=== PATIENT | female | born 1950 | race Two or more races ===

== ENCOUNTER → 2020-01-18 10:37 | Outpatient (BNVA) | payer MEDICARE, BC, SELFPAY | PROVIDERS: PCP Physician Assistant Medical; Visit Provider Hospitalist | DX: G47.33 Obstructive sleep apnea (adult) (pediatric) (principal); Z99.89 Dependence on other enabling machines and devices | CPT/HCPCS: 99212 ==

== ENCOUNTER → 2020-08-01 11:08 | Outpatient (BNVA) | payer MEDICARE, BC, SELFPAY | PROVIDERS: PCP Physician Assistant Medical; Visit Provider Hospitalist | DX: G47.33 Obstructive sleep apnea (adult) (pediatric) (principal); F51.01 Primary insomnia; Z99.89 Dependence on other enabling machines and devices | CPT/HCPCS: 99212 ==

== ENCOUNTER → 2021-04-03 11:20 | Outpatient (BNVA) | payer MEDICARE, BC, SELFPAY | PROVIDERS: PCP Physician Assistant Medical; Visit Provider Hospitalist | DX: Z13.89 Encounter for screening for other disorder (principal) | CPT/HCPCS: Q3014 ==

== ENCOUNTER → 2021-10-08 13:45 | Outpatient (BNVA) | payer MEDICARE, BC, SELFPAY | PROVIDERS: PCP Physician Assistant Medical; Visit Provider Hospitalist | DX: F51.01 Primary insomnia (principal); G47.33 Obstructive sleep apnea (adult) (pediatric); Z99.89 Dependence on other enabling machines and devices | CPT/HCPCS: Q3014 ==

== ENCOUNTER 2022-10-13 09:40 | Outpatient (AMB) | payer MEDICARE, BC, SELFPAY ==
--- NOTE | 2022-10-13 09:47 | A.OFFVIS_ITS ---
Intake Vital Signs 10/13/22 09:48 Height 5 ft 4 in Weight 170 lb BMI 29.2 BP 126/78 Blood Pressure Location Rt brachial Position Sitting Pulse 73 Pulse Source Pulse Oximeter Pulse Oximetry (%) 94 Oxygen Delivery Method Room Air Intake Visit Reasons: Obstructive sleep apnea Hand Violin Maker Required: No Allergies Sulfa (Sulfonamide Antibiotics) Allergy (Intermediate, Verified 10/13/22 09:53) Rash HPI HPI Comments History of Present Illness Details The patient is a 71-year-old woman with a known history of obstructive sleep apnea on CPAP therapy. She also has underlying high blood pressure and hypercholesterolemia. The patient has been on CPAP for many years. The CPAP therapy has been effective in beneficial. Recently she had has had significant weight loss. I believe this has helped her with her sleep apnea. However, she continues to have increased risk factors. She sleeps well with the CPAP she does complaint of a dry nose and she is going to looking to getting some water- based lubricant. I did request a download from her CPAP. It appears that her AHI is indeed around 6 suggesting still some mild sleep apnea. Her average pressure is between 11 and 12 cm of water. Her machine only goes up to 12 cm. Therefore we need to increase her pressures further. She denies any cough or shortness of breath. She did have a knee replacement and has been healing from that surgery in her left knee. 10/08/2021 the patient has a telephone visit today. The patient is still struggling with her CPAP. Apparently the CPAP is turning on and off by itself. Sometimes she gets home and she notices that the machine is very hot. Therefore she started disconnected from the plug because she is concerned is going to start a fire. I explained to her that this is not normal. The machine is no longer working effectively and now is dangerous and needs to be replaced. She is currently working closely with the [employer], [employer]. I will make sure to submit a prescription for new CPAP, AirSense 11 to replace her malfunctioning machine that is more than 5 years old. As far as [place]. She is not very happy with the F 30 because it leaks a around it. She rather have an F20 fullface mask that may seal her a little bit better. in regards to sleep aid she continues uses trazodone with good effect. She also continues with nasal therapy for allergic rhinitis. The patient understands that there is a back log of CPAP machines in therefore will take longer for her to get a replacement machine and to be patient. In the meantime she should continue this connective CPAP when leaving her home specially if is going to be warming up. 10/13/2022 the patient is here for pulmonary follow-up visit today. Overall the patient has been doing fairly well. She is staying active and she is now going to the [employer] [place]. She is volunteering her time there. She still having difficulties with her sleep. She states that her machine is not working correctly. We had submitted a prescription for a new CPAP last year and for some reason she did not get it. She is concerned because she does not feel like his given of the right pressures and sometime she gets some a needs from using machine since she does not feel like it is working correctly. Still when she does not use it she gets very drowsy and Kateryna to take a nap. Therefore she understands that she needs to continue using it. The CPAP therapy continues to be affecting beneficial and she does try to use it 4 hours in the nighttime. However with the uncertainty that if is working she is concerned that it is needs to be replaced. Therefore I will submit a repair replacement machine to her [employer] company at this time. From a respiratory status patient is doing well she is not using any inhalers. Still, with sleep she does use trazodone with good effect. [facility] Medical History (Updated 08/01/20 @ 23:10 by Neville Arita MD) Insomnia LUIS ALFREDO on CPAP Family History (Updated 01/18/20 @ 23:26 by Neville Arita MD) Father No problems noted. Social History (Updated 10/13/22 @ 09:55 by GANESH Salinas) Patient Tobacco Use Status: Never used Tobacco Review of Systems Const Reports difficulty sleeping and Denies night sweats ENT Denies change in voice, Reports dry mouth, Denies lip swelling, Denies mouth pain, Reports nasal congestion, Reports nasal discharge and Denies tongue swelling Card Denies chest pain Resp Reports cough GI Denies abdominal pain Musc Reports as per HPI and Reports arthralgias Neuro Denies Neuro-related abnormal movements Psych Denies no additional complaints Lee/Lymph Denies easy bleeding and Denies lymphadenopathy Aller/Immun Denies lip swelling and Denies tongue swelling Physical Exam Vital Signs: Last Vital Signs Pulse 73 10/13/22 09:48 BP 126/78 10/13/22 09:48 Pulse Ox 94 10/13/22 09:48 Oxygen Delivery Method Room Air 10/13/22 09:48 BMI result Body Mass Index 29.2 Const General: alert HEENT General nose exam: Abnormal external nose present and Nasal discharge present Eyes Pupils: Equal, round and reactive pupils present Neck Neck: Yes normal visual inspection, Yes full ROM and Yes no lymphadenopathy Chest Chest palpation & inspection: normal inspection of the chest Resp Auscultation: diminished lung sounds Cardio Rate: regular rate Rhythm: regular rhythm Heart sounds: S1 normal heart sound present and S2 normal heart sound present GI Palpation (GI): Soft to palpation and nontender Auscultation: normal bowel sounds General: Yes no CVA tenderness Back/Spine/Pelvis Back: no CVA tenderness Skin General skin exam: rashes and/or lesions noted Neuro Cranial nerves: Yes Equal, round and reactive pupils present Assessment & Plan Assessment & Plan (1) Insomnia: Code(s): G47.00 - Insomnia, unspecified Qualifiers: Insomnia type: primary Qualified Code(s): F51.01 - Primary insomnia (2) LUIS ALFREDO on CPAP: Code(s): G47.33 - Obstructive sleep apnea (adult) (pediatric); Z99.89 - Dependence on other enabling machines and devices Plan Continue Trazodone for sleep Return to F20 mask, medium, will request supplies from her [employer]. Needs a replacement APAP due to malfunctioning cpap beyond repair. Requesting Airsense 11 F/U 6 months Coding Level of Care Code Est Pt Level 4 (85562) Diagnoses Insomnia F51.01 Insomnia type: primary LUIS ALFREDO on CPAP G47.33; Z99.89 Time Spent (min) 18
[2022-10-13 09:48] VITALS: BP 126/78; PULSE 73; O2SAT 94; BMI 29.2
== END 2022-10-13 10:13 | disposition home or self-care (01) ==
PROVIDERS: PCP Physician Assistant Medical; Visit Provider Hospitalist
DX: F51.01 Primary insomnia (principal); G47.33 Obstructive sleep apnea (adult) (pediatric); Z99.89 Dependence on other enabling machines and devices
CPT/HCPCS: 99214

== ENCOUNTER → 2022-10-13 09:40 | Outpatient (BNVA) | payer MEDICARE, BC, SELFPAY | PROVIDERS: PCP Physician Assistant Medical; Visit Provider Hospitalist | DX: G47.33 Obstructive sleep apnea (adult) (pediatric) (principal); F51.01 Primary insomnia; I10 Essential (primary) hypertension; E78.00 Pure hypercholesterolemia, unspecified; Z99.89 Dependence on other enabling machines and devices | CPT/HCPCS: 99212 ==

== ENCOUNTER 2023-04-13 09:35 | Outpatient (AMB) | payer MEDICARE, BC, SELFPAY ==
--- NOTE | 2023-04-13 09:39 | MHC.OFFVIS ---
Intake Vital Signs 04/13/23 09:40 Height 5 ft 4 in Weight 169 lb 15.622 oz BMI 29.2 BP 124/70 Blood Pressure Location Lt brachial Position Sitting Pulse 78 Pulse Source Pulse Oximeter Pulse Oximetry (%) 98 Oxygen Delivery Method Room Air Intake Visit Reasons: Obstructive sleep apnea Educational Technologist Required: No Allergies Sulfa (Sulfonamide Antibiotics) Allergy (Intermediate, Verified 04/13/23 09:43) Rash HPI HPI Comments History of Present Illness Details The patient is a 72-year-old woman with a known history of obstructive sleep apnea on CPAP therapy. She also has underlying high blood pressure and hypercholesterolemia. The patient has been on CPAP for many years. The CPAP therapy has been effective in beneficial. Recently she had has had significant weight loss. I believe this has helped her with her sleep apnea. However, she continues to have increased risk factors. She sleeps well with the CPAP she does complaint of a dry nose and she is going to looking to getting some water-based lubricant. I did request a download from her CPAP. It appears that her AHI is indeed around 6 suggesting still some mild sleep apnea. Her average pressure is between 11 and 12 cm of water. Her machine only goes up to 12 cm. Therefore we need to increase her pressures further. She denies any cough or shortness of breath. She did have a knee replacement and has been healing from that surgery in her left knee. 10/08/2021 the patient has a telephone visit today. The patient is still struggling with her CPAP. Apparently the CPAP is turning on and off by itself. Sometimes she gets home and she notices that the machine is very hot. Therefore she started disconnected from the plug because she is concerned is going to start a fire. I explained to her that this is not normal. The machine is no longer working effectively and now is dangerous and needs to be replaced. She is currently working closely with the [employer], [employer]. I will make sure to submit a prescription for new CPAP, AirSense 11 to replace her malfunctioning machine that is more than 5 years old. As far as [place]. She is not very happy with the F 30 because it leaks a around it. She rather have an F20 fullface mask that may seal her a little bit better. in regards to sleep aid she continues uses trazodone with good effect. She also continues with nasal therapy for allergic rhinitis. The patient understands that there is a back log of CPAP machines in therefore will take longer for her to get a replacement machine and to be patient. In the meantime she should continue this connective CPAP when leaving her home specially if is going to be warming up. 10/13/2022 the patient is here for pulmonary follow-up visit today. Overall the patient has been doing fairly well. She is staying active and she is now going to the [facility]. She is volunteering her time there. She still having difficulties with her sleep. She states that her machine is not working correctly. We had submitted a prescription for a new CPAP last year and for some reason she did not get it. She is concerned because she does not feel like his given of the right pressures and sometime she gets some a needs from using machine since she does not feel like it is working correctly. Still when she does not use it she gets very drowsy and Kateryna to take a nap. Therefore she understands that she needs to continue using it. The CPAP therapy continues to be affecting beneficial and she does try to use it 4 hours in the nighttime. However with the uncertainty that if is working she is concerned that it is needs to be replaced. Therefore I will submit a repair replacement machine to her [employer] company at this time. From a respiratory status patient is doing well she is not using any inhalers. Still, with sleep she does use trazodone with good effect. 04/13/2023 the patient is here for a pulmonary follow-up visit. Overall the patient has been doing well. She has been using the CPAP therapy and has been affecting beneficial. She does use it for more than 4 hours a night. Currently she is noticed that her AHI has been elevated. We did download her machine indeed her AHI is up to 9.5. It looks that she is also getting a very dry mouth. Likely from a very high temperature on her settings. In addition to that she is getting condensation in the tube due to the high temperature in the high humidity levels. Her average pressure is close to 9 cm and she typically varies between 9 and 15 cm. I did increase her pressures with a minimum pressure of 8 and a maximum pressure 18. We also switched her EPR to 3 to try to minimize the discomfort from the higher pressure. Will also adjusted her water chamber to decrease the temperature from 80 degrees to 64 degrees and brought down humidity from 5->3. I am hopeful that she can tolerated better. She does use a fullface mask. We also helped her with a portable so she can send us a message and try to adjusted accordingly. Meantime she is still using the trazodone for sleep. This has been affecting beneficial and she will continue for now. The patient returned in 6 months. However, if her AHI continues be elevated she needs to call the office.Also to note, she has been bleeding from her vericose veins. [facility] Medical History (Updated 04/13/23 @ 10:03 by Neville Arita MD) Insomnia LUIS ALFREDO on CPAP Family History (Updated 01/18/20 @ 23:26 by Neville Arita MD) Father No problems noted. Social History (Updated 10/13/22 @ 09:55 by Ambika Perla Ralf) Patient Tobacco Use Status: Never used Tobacco Review of Systems Const Reports difficulty sleeping and Denies night sweats ENT Denies change in voice, Reports dry mouth, Denies lip swelling, Denies mouth pain, Reports nasal congestion, Reports nasal discharge and Denies tongue swelling Card Denies chest pain and Reports leg edema Resp Reports cough GI Denies abdominal pain Musc Reports as per HPI and Reports arthralgias Neuro Denies Neuro-related abnormal movements Psych Denies no additional complaints Lee/Lymph Denies easy bleeding and Denies lymphadenopathy Aller/Immun Denies lip swelling and Denies tongue swelling Physical Exam Vital Signs: Last Vital Signs Pulse 78 04/13/23 09:40 BP 124/70 04/13/23 09:40 Pulse Ox 98 04/13/23 09:40 Oxygen Delivery Method Room Air 04/13/23 09:40 BMI result Body Mass Index 29.2 Const General: alert HEENT General nose exam: Abnormal external nose present and Nasal discharge present Eyes Pupils: Equal, round and reactive pupils present Neck Neck: Yes normal visual inspection, Yes full ROM and Yes no lymphadenopathy Chest Chest palpation & inspection: normal inspection of the chest Resp Auscultation: diminished lung sounds Cardio Rate: regular rate Rhythm: regular rhythm Heart sounds: S1 normal heart sound present and S2 normal heart sound present GI Palpation (GI): Soft to palpation and nontender Auscultation: normal bowel sounds General: Yes no CVA tenderness Back/Spine/Pelvis Back: no CVA tenderness Skin General skin exam: rashes and/or lesions noted Neuro Cranial nerves: Yes Equal, round and reactive pupils present Assessment & Plan Assessment & Plan (1) Insomnia: Code(s): G47.00 - Insomnia, unspecified Qualifiers: Insomnia type: primary Qualified Code(s): F51.01 - Primary insomnia (2) LUIS ALFREDO on CPAP: Code(s): G47.33 - Obstructive sleep apnea (adult) (pediatric); Z99.89 - Dependence on other enabling machines and devices Plan Continue Trazodone for sleep continue APAP Airsense 11, increase pressures 6-16 to 8-18, adjusted humidity 5 to 3 and temp 80 to 64. will refer to vascular surgery for her varicose veins. F/U 6 months Orders: Referrals Vascular Surgery Referral I87.9 - Disorder of vein, unspecified Coding Level of Care Code Est Pt Level 4 (80443) Diagnoses Primary insomnia F51.01 Insomnia type: primary LUIS ALFREDO on CPAP G47.33; Z99.89 Time Spent (min) 17
[2023-04-13 09:40] VITALS: BP 124/70; PULSE 78; O2SAT 98; BMI 29.2
== END 2023-04-13 10:06 | disposition home or self-care (01) ==
PROVIDERS: PCP Physician Assistant Medical; Visit Provider Hospitalist
DX: F51.01 Primary insomnia (principal); G47.33 Obstructive sleep apnea (adult) (pediatric); Z99.89 Dependence on other enabling machines and devices
CPT/HCPCS: 99214

== ENCOUNTER → 2023-04-13 09:35 | Outpatient (BNVA) | payer MEDICARE, BC, SELFPAY | PROVIDERS: PCP Physician Assistant Medical; Visit Provider Hospitalist | DX: G47.33 Obstructive sleep apnea (adult) (pediatric) (principal); F51.01 Primary insomnia; Z99.89 Dependence on other enabling machines and devices | CPT/HCPCS: 99212 ==

== ENCOUNTER 2023-10-19 09:51 | Outpatient (AMB) | payer MEDICARE, BC, SELFPAY ==
--- NOTE | 2023-10-19 10:04 | MHC.OFFVIS ---
Vital Signs 10/19/23 10:05 Height 5 ft 4 in Weight 170 lb BMI 29.2 Pulse 64 Pulse Source Pulse Oximeter Pulse Oximetry (%) 96 Oxygen Delivery Method Room Air Intake Visit Reasons: Obstructive sleep apnea Screener Perfumer Required: No Allergies Sulfa (Sulfonamide Antibiotics) Allergy (Intermediate, Verified 10/19/23 10:06) Rash HPI Comments Details: The patient is a 72-year-old woman with a known history of obstructive sleep apnea on CPAP therapy. She also has underlying high blood pressure and hypercholesterolemia. The patient has been on CPAP for many years. The CPAP therapy has been effective in beneficial. Recently she had has had significant weight loss. I believe this has helped her with her sleep apnea. However, she continues to have increased risk factors. She sleeps well with the CPAP she does complaint of a dry nose and she is going to looking to getting some water-based lubricant. I did request a download from her CPAP. It appears that her AHI is indeed around 6 suggesting still some mild sleep apnea. Her average pressure is between 11 and 12 cm of water. Her machine only goes up to 12 cm. Therefore we need to increase her pressures further. She denies any cough or shortness of breath. She did have a knee replacement and has been healing from that surgery in her left knee. 10/08/2021 the patient has a telephone visit today. The patient is still struggling with her CPAP. Apparently the CPAP is turning on and off by itself. Sometimes she gets home and she notices that the machine is very hot. Therefore she started disconnected from the plug because she is concerned is going to start a fire. I explained to her that this is not normal. The machine is no longer working effectively and now is dangerous and needs to be replaced. She is currently working closely with the [employer], [facility]. I will make sure to submit a prescription for new CPAP, AirSense 11 to replace her malfunctioning machine that is more than 5 years old. As far as [place]. She is not very happy with the F 30 because it leaks a around it. She rather have an F20 fullface mask that may seal her a little bit better. in regards to sleep aid she continues uses trazodone with good effect. She also continues with nasal therapy for allergic rhinitis. The patient understands that there is a back log of CPAP machines in therefore will take longer for her to get a replacement machine and to be patient. In the meantime she should continue this connective CPAP when leaving her home specially if is going to be warming up. 10/13/2022 the patient is here for pulmonary follow-up visit today. Overall the patient has been doing fairly well. She is staying active and she is now going to the [facility]. She is volunteering her time there. She still having difficulties with her sleep. She states that her machine is not working correctly. We had submitted a prescription for a new CPAP last year and for some reason she did not get it. She is concerned because she does not feel like his given of the right pressures and sometime she gets some a needs from using machine since she does not feel like it is working correctly. Still when she does not use it she gets very drowsy and Kateryna to take a nap. Therefore she understands that she needs to continue using it. The CPAP therapy continues to be affecting beneficial and she does try to use it 4 hours in the nighttime. However with the uncertainty that if is working she is concerned that it is needs to be replaced. Therefore I will submit a repair replacement machine to her [employer] company at this time. From a respiratory status patient is doing well she is not using any inhalers. Still, with sleep she does use trazodone with good effect. 04/13/2023 the patient is here for a pulmonary follow-up visit. Overall the patient has been doing well. She has been using the CPAP therapy and has been affecting beneficial. She does use it for more than 4 hours a night. Currently she is noticed that her AHI has been elevated. We did download her machine indeed her AHI is up to 9.5. It looks that she is also getting a very dry mouth. Likely from a very high temperature on her settings. In addition to that she is getting condensation in the tube due to the high temperature in the high humidity levels. Her average pressure is close to 9 cm and she typically varies between 9 and 15 cm. I did increase her pressures with a minimum pressure of 8 and a maximum pressure 18. We also switched her EPR to 3 to try to minimize the discomfort from the higher pressure. Will also adjusted her water chamber to decrease the temperature from 80 degrees to 64 degrees and brought down humidity from 5->3. I am hopeful that she can tolerated better. She does use a fullface mask. We also helped her with a portable so she can send us a message and try to adjusted accordingly. Meantime she is still using the trazodone for sleep. This has been affecting beneficial and she will continue for now. The patient returned in 6 months. However, if her AHI continues be elevated she needs to call the office.Also to note, she has been bleeding from her vericose veins. 10/19/2023 the patient is here for a pulmonary follow-up visit. Overall the patient is doing well. She does use her CPAP every night. CPAP therapy has been affecting beneficial. She still complains of a dry mouth. I did adjust the temperature and humidity again. I made it auto in order for her to be able to self adjust. Also increase the temperature somewhat from before. Her AHI continues to be elevated. In part due to central apneas. Therefore is okay to decrease the maximum pressure to minimize the central apneas from the CPAP therapy. She continues use her sleep aid. I do not believe the sleep aid is contributing to the central apneas. I do believe the overall clinically she is feeling well. Will continue with the current pressures and if she has any difficulty she will call for an earlier assessment otherwise will follow-up in a year's time. [facility] Medical History (Updated 10/19/23 @ 10:20 by Neville Arita MD) Murmur Insomnia LUIS ALFREDO on CPAP Family History (Updated 01/18/20 @ 23:26 by Neville Arita MD) Father No problems noted. Social History (Updated 10/13/22 @ 09:55 by Ambika Perla Ralf) Patient Tobacco Use Status: Never used Tobacco Review of Systems Const Reports difficulty sleeping and Denies night sweats ENT Denies change in voice, Denies lip swelling, Denies mouth pain, Reports nasal congestion, Reports nasal discharge and Denies tongue swelling Card Denies chest pain Resp Reports cough GI Denies abdominal pain Musc Reports as per HPI and Reports arthralgias Neuro Denies Neuro-related abnormal movements Psych Denies no additional complaints Lee/Lymph Denies easy bleeding and Denies lymphadenopathy Aller/Immun Denies lip swelling and Denies tongue swelling Physical Exam Vital Signs: Last Vital Signs Pulse 64 10/19/23 10:05 Pulse Ox 96 10/19/23 10:05 Oxygen Delivery Method Room Air 10/19/23 10:05 BMI result Body Mass Index 29.2 Const General: alert HEENT General nose exam: Abnormal external nose present and Nasal discharge present Eyes Pupils: Equal, round and reactive pupils present Neck Neck: Yes normal visual inspection, Yes full ROM and Yes no lymphadenopathy Chest Chest palpation & inspection: normal inspection of the chest Resp Auscultation: diminished lung sounds Cardio Rate: regular rate Rhythm: regular rhythm Heart sounds: S1 normal heart sound present, S2 normal heart sound present and Murmur heart sound present GI Palpation (GI): Soft to palpation and nontender Auscultation: normal bowel sounds General: Yes no CVA tenderness Back/Spine/Pelvis Back: no CVA tenderness Skin General skin exam: rashes and/or lesions noted Neuro Cranial nerves: Yes Equal, round and reactive pupils present Assessment & Plan Assessment & Plan (1) Insomnia: Code(s): G47.00 - Insomnia, unspecified Category: Medical Qualifiers: Insomnia type: primary Qualified Code(s): F51.01 - Primary insomnia (2) LUIS ALFREDO on CPAP: Code(s): G47.33 - Obstructive sleep apnea (adult) (pediatric); Z99.89 - Dependence on other enabling machines and devices Category: Medical (3) Murmur: Code(s): R01.1 - Cardiac murmur, unspecified Category: Medical Plan Continue Trazodone for sleep continue APAP Airsense 11, increase pressures 6-16 to 8-18, adjusted humidity 5 to 3 and temp 74->64. f/u with PCP/cardiology re: murmur F/U 8-10 months Coding Level of Care Code Est Pt Level 4 (91954) Diagnoses Primary insomnia F51.01 Insomnia type: primary LUIS ALFREDO on CPAP G47.33; Z99.89 Murmur R01.1 Time Spent (min) 16
[2023-10-19 10:05] VITALS: PULSE 64; O2SAT 96; BMI 29.2
== END 2023-10-19 10:28 | disposition home or self-care (01) ==
PROVIDERS: PCP Physician Assistant Medical; Visit Provider Hospitalist
DX: F51.01 Primary insomnia (principal); G47.33 Obstructive sleep apnea (adult) (pediatric); Z99.89 Dependence on other enabling machines and devices; R01.1 Cardiac murmur, unspecified
CPT/HCPCS: 99214

== ENCOUNTER → 2023-10-19 09:51 | Outpatient (BNVA) | payer MEDICARE, BC, SELFPAY | PROVIDERS: PCP Physician Assistant Medical; Visit Provider Hospitalist | DX: G47.33 Obstructive sleep apnea (adult) (pediatric) (principal); R01.1 Cardiac murmur, unspecified; F51.01 Primary insomnia; Z99.89 Dependence on other enabling machines and devices | CPT/HCPCS: 99212 ==

== ENCOUNTER 2024-10-12 09:44 | Outpatient (AMB) | payer MEDICARE, BC, SELFPAY ==
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
[2024-10-12 09:48] VITALS: BP 136/64; PULSE 68; O2SAT 98; BMI 27.4
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
--- OUTSIDE RECORDS SUMMARY | 2024-10-12 10:14 | XMS_ITS ---
Author Name [facility] History of Medication Use Medication Directions Dispensed Refills Start Date End Date Stat us carvedilol (COREG) 6.25 MG tablet Take 1 tablet (6.25 mg total) by mouth 2 (two) times a day with meals. 06/03/2023 active lisinopril (PRINIVIL,ZeSTRIL) 10 MG tablet Take 1 tablet (10 mg total) by mouth daily. 06/03/2023 active methenamine hippurate (HIPREX) 1 g tablet Take 1 tablet (1 g total) by mouth 2 times a day. 04/02/2023 active EPINEPHrine 0.3 mg/0.3 mL IJ auto-injection Inject 0.3 mL (0.3 mg total) into the shoulder, thigh, or buttocks once as needed. active vitamin E 100 UNIT capsule Take 1 capsule (100 Units total) by mouth daily. 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 2023-05-09 ProblemAct [facility] Hyperlipidemia active 2023-05-[address] Elevated LFTs active 2023-05-09 ProblemAct [facility] T CAD (coronary artery disease) active 2023-05-09 ProblemAct [facility] Cirrhosis active 2023-05-09 ProblemAct [facility] HTN (hypertension) active 2023-05-09 ProblemAct [facility] Type 2 diabetes mellitus active 2023-05-09 ProblemAct [facility] History of breast cancer active 2023-05-09 ProblemAct [facility] Recurrent UTI active 2023-05-09 ProblemAct [facility] T Osteoporosis active 2023-05-09 ProblemAct [facility] Gallstones active 2023-05-09 ProblemAct [facility] Thrombocytopenia active 2023-05-09 ProblemAct [facility] Kidney stones active 2023-05-09 ProblemAct [facility] T Primary osteoarthritis of left hand active 2023-05-09 ProblemAct [facility] Anxiety active 2023-05-09 ProblemAct [facility] Immunizations Vaccine Date Source Lot Number Status Influenza, Quadrivalent (FLU CELVAX) MDCK, Preservative Free IM 02/02/2023 [facility] completed Pneumococcal Polysaccharide 23-Valent 03/07/2020 [facility] completed Tdap 11/23/2018 [facility] completed Hepatitis B 09/28/2018 [facility] [id number] completed Pneumococcal Conjugate 13-Valent 05/23/2015 [facility] completed Zoster Vaccine Live/Attenuated (Zostavax) [facility] H1N1 Inj Preservative Free 02/13/2009 [facility] completed Encounters Encounter Type Encounter Reason Primary Diagnosis Location Date Ambulatory Encounter for genera l adult medical examination without abnormal findings Encounter for general adult medical examination without abnormal findings [facility] 10/11/2024 Ambulatory Hepatomegaly, not elsewhere classified Hepatomegaly, not elsewhere classified [facility] 08/15/2024 Ambulatory Type 2 diabetes mellitus without complications Type 2 diabetes mellitus without complications [facility] 07/12/2024 Ambulatory Type 2 diabetes mellitus without complications Type 2 diabetes mellitus without complications [facility] 04/28/2024 Ambulatory Type 2 diabetes mellitus without complications Type 2 diabetes mellitus without complications [facility] 12/14/2023 Ambulatory Type 2 diabetes mellitus without complications Type 2 diabetes mellitus without complications [facility] 09/15/2023 Ambulatory Atherosclerotic hear t disease of [place] coronary artery without angina pectoris Atherosclerotic heart disease of [place] coronary artery without angina pectoris [facility] 05/11/2023 Care Team Organization Name Specialty Phone Email Start Date End Da te [facility] JIN Primary Care 05/11/2023 [facility] NO PCP Primary Care 05/11/2023 05/11/2023 [facility] SB ABDI Primary Care 05/09/2023
--- OUTSIDE RECORDS SUMMARY | 2024-10-12 10:14 | XMS_ITS | Encounter Summary ---
Author Organization [facility] Address [address] [place] [id number] Care Team Providers Care Medical Practice Manager Name Role Phone Josie Hua PA-C Primary Care Provi kathleen Silva Zazueta MD Unavailable [phone] Cristopher Martinez MD Unavailable Unavailable Sarath Fitzgerald MD Unavailable Neville Arita MD Unavailable [phone] Reason for Visit * Reason Comments Referral Encounter Details Date Type Department Care Team (Late st Contact Info) Description 06/10/2023 Telephone [facility] [address] [place] [phone] Josie Hua PA-C [address] [place] [id number] Referral Social History Tobacco Use Types Packs/Day Years Used Date Smoking Tobacco: Never Smokeless Tobacco: Never Alcohol Use Standard Drinks/Week Comments Yes 0 (1 standard drink = 0.6 oz pur e alcohol) PHQ-2 Answer Date Recorded PHQ-2 Total Score 0 05/11/2023 Comments Unknown Sex and Gender Information Value Date Recorded Sex Assigned at Not on file Legal Sex Female 1:20 PM EDT Gender Identity Not on file Sexual Orientation Not on file documented as of this encounter Miscellaneous Notes * Telephone Encounter - Isra Miles [place] - 06/11/2023 2:43 PM EDT Referral faxed documented in this encounter Plan of Treatment Upcoming Encounters Date Type Department Care Team (Late st Contact Info) Description 01/17/2025 9:00 AM EST Office Visit [facility] [address] [place] [address] Josie Hua PA-C [address] [place] [address] documented as of this encounter Visit Diagnoses Not on filedocumented in this encounter Care Teams Medical Practice Manager Relationship Specialty Start Date End Date Josie Hua PA-C [address] [facility] [place] [address] PCP - General Internal Medicine 05/09/23 Silva Zazueta MD [facility] [place] [address] Urology 09/15/23 Cristopher Martinez MD [facility] [place] [address] Referring Provider Gastroenterology 09/15/23 Sarath Fitzgerald MD [address] [place] [phone] 09/15/23 Neville Arita MD [address] [place] [id number] Pulmonary Disease 09/15/23 Sheila Ruiz Physician Ophthalmology 08/31/23 Jenise Nguyen Surgery, Breast 08/31/23 Bashir Correa Physician Podiatry 08/31/23 documented as of this encounter
== END 2024-10-12 10:27 | disposition home or self-care (01) ==
LOC: HO.HPS 09:45
PROVIDERS: PCP Physician Assistant Medical; Visit Provider Hospitalist
DX: F51.01 Primary insomnia (principal); G47.33 Obstructive sleep apnea (adult) (pediatric); Z99.89 Dependence on other enabling machines and devices; R01.1 Cardiac murmur, unspecified
CPT/HCPCS: 99214

== ENCOUNTER → 2024-10-12 09:44 | Outpatient (BNVA) | payer MEDICARE, BC, SELFPAY | PROVIDERS: PCP Physician Assistant Medical; Visit Provider Hospitalist | DX: G47.33 Obstructive sleep apnea (adult) (pediatric) (principal); F51.01 Primary insomnia; R01.1 Cardiac murmur, unspecified; Z99.89 Dependence on other enabling machines and devices | CPT/HCPCS: 99212 ==